=== PATIENT | female | born 2000 | race Hispanic/Latino ===

== ENCOUNTER 2023-04-06 03:48 | Emergency (ER) | payer SELFPAY ==
[~2023-04-06] VITALS: Ht 157.5 cm; Wt 57.6 kg
[2023-04-06 03:55] VITALS: O2SAT 100
[2023-04-06] MEDS ORDERED: FIORICET 50-301 EACH PO (03:56)
== END 2023-04-06 04:20 | disposition home or self-care (01) ==
LOC: ER 03:57
DX: R51.9 Headache, unspecified (principal)
CPT/HCPCS: 99282